=== PATIENT | female | born 1975 | race Caucasian/White ===

== ENCOUNTER 2020-04-28 10:38 | Day surgery (SDC) | payer BC ==
[2020-04-27 11:37] VITALS: BMI 20.5
[2020-04-28] MEDS ORDERED: PROPOFOL 20 ML ONE (12:05)
[2020-04-28 12:45] VITALS: TEMP 97.8
[2020-04-28 12:52] VITALS: BP 110/64; PULSE 80
== END 2020-04-28 13:05 | disposition home or self-care (01) ==
LOC: FASU-ENDO 10:38
PROVIDERS: ATTEND Internal Medicine Gastroenterology
PROC: 0DJD8ZZ Inspection of Lower Intestinal Tract, Via Natural or Artificial Opening Endoscopic (ICD-10-PCS; principal; 2020-04-28 11:57)
DX: Z12.11 Encounter for screening for malignant neoplasm of colon (principal); K64.2 Third degree hemorrhoids
CPT/HCPCS: 84703